=== PATIENT | female | born 1985 | race Caucasian/White ===

== ENCOUNTER 2018-01-28 08:55 | Day surgery (SDC) | payer BC ==
[~2018-01-28] VITALS: Ht 160 cm; Wt 92.5 kg
[2018-01-28] VITALS (7 sets, daily range): BP systolic 102–119; BP diastolic 54–76; PULSE 62–69; TEMP 97.1–98.2
[~2018-01-28 08:55] MED LIST: MOTRIN 800800 MG/TAB PO; PERCOCET 325 MG1 TA2 PO
== END 2018-01-28 16:15 | disposition home or self-care (01) ==
LOC: SDCO 08:55
DX: N84.0 Polyp of corpus uteri (principal); N92.0 Excessive and frequent menstruation with regular cycle; K66.0 Peritoneal adhesions (postprocedural) (postinfection); K42.9 Umbilical hernia without obstruction or gangrene; E03.9 Hypothyroidism, unspecified; K59.00 Constipation, unspecified; K58.9 Irritable bowel syndrome, unspecified; F41.9 Anxiety disorder, unspecified; E28.2 Polycystic ovarian syndrome; Z91.040 Latex allergy status
CPT/HCPCS: A4314; J0690; J1170; J1885; J2175; J2704; J2710; J3010; J7120